=== PATIENT | female | born 1970 | race Caucasian/White ===

== ENCOUNTER 2022-08-05 23:51 | Emergency (ER) | payer SELFPAY ==
[~2022-08-05] VITALS: Ht 147.3 cm; Wt 62.1 kg
[2022-08-06] MEDS ORDERED: SODIUM CHLORIDE 0.9% 1,000 ML IV ONE
[2022-08-06 01:45] LABS: BASOPHILS % 0.8 % (0.0-2.0); EOSINOPHILS % 3.2 % (0.0-5.0); HEMATOCRIT. 42.2 % (36.0-48.0); HEMOGLOBIN. 14.2 g/dL (12.0-16.0); MEAN CORPUSCULAR HEMOGLOBIN 31.9 pg (28.0-32.0); MEAN CORPUSCULAR VOLUME 95.1 fL (81.0-99.0); MEAN PLATELET VOLUME 6.8 fl (7.4-10.4); MONOCYTES % 6.5 % (2.0-8.0); NEUTROPHILS % 56.5 % (40.0-76.0); PLATELET 308 x1000/uL (130-400); RED BLOOD CELL COUNT 4.44 mill/uL (4.2-5.4); RED CELL DISTRIBUTION WIDTH 14.3 % (11.6-14.6)
[2022-08-06 01:51] LABS: CHLORIDE 114 mEq/L (98-107)
[2022-08-06 05:16] LABS: ETHANOL BLOOD 296 mg/dL
[2022-08-06 06:40] VITALS: BP 104/69
== END 2022-08-06 06:46 | disposition home or self-care (01) ==
LOC: ER 23:51
DX: T51.0X1A Toxic effect of ethanol, accidental (unintentional), initial encounter (principal); G92.8 Other toxic encephalopathy; Y90.8 Blood alcohol level of 240 mg/100 ml or more; Y92.39 Other specified sports and athletic area as the place of occurrence of the external cause
CPT/HCPCS: 36415; 80053; 80307; 80320; 80329; 85025; 96360; 99285; J7030; Z7610; G0480